=== PATIENT | female | born 1980 | race American Indian/Alaskan Native ===

== ENCOUNTER 2018-03-16 22:37 | Emergency (ER) | payer SELFPAY ==
[2018-03-16 23:01] VITALS: BP 118/74
[2018-03-16 23:23] LABS: Basophils % (Auto) 0.6 % (0.0-1.8); Eosinophils # (Auto) 0.2 K/mm3 (0.0-0.4); Eosinophils % (Auto) 3.5 % (0.0-4.3); Hematocrit 36.1 % (30.3-42.9); Hemoglobin 12.2 gm/dl (10.1-14.3); Lymphocytes # (Auto) 2.8 K/mm3 (1.2-5.4); Lymphocytes % (Auto) 46.1 % (13.4-35.0); Mean Corpuscular HGB Conc 34 % (30-34); Mean Corpuscular Hemoglobin 31 pg (28-32); Mean Corpuscular Volume 93 fl (79-97); Monocytes # (Auto) 0.3 K/mm3 (0.0-0.8); Monocytes % (Auto) 5.6 % (0.0-7.3); Platelet Count 306 K/mm3 (140-440); Red Cell Distribution Width 14.5 % (13.2-15.2)
[2018-03-16 23:48] LABS: Alanine Aminotransferase 17 units/L (7-56); Albumin 3.6 g/dL (3.9-5); BUN/Creatinine Ratio 13; Blood Urea Nitrogen 12 mg/dL (7-17); Calcium 8.7 mg/dL (8.4-10.2); Hemolysis Index 1
[2018-03-17 00:04] LABS: Bilirubin,Urine SM (Negative); Blood,Urine NEG (Negative); Color,Urine Yellow (Yellow); Mucus,Urine FEW /HPF; WBC,Urine < 1.0 /HPF (0.0-6.0)
[2018-03-17 00:15] LABS: Bacteria,Urine 1+ /HPF (Negative)
[2018-03-17 00:21] LABS: Ictotest,Urine Negative (Negative)
--- NOTE | 2018-03-17 01:18 | XRay Report ---
FINAL REPORT PROCEDURE: XR SPINE LUMBOSACRAL 2-3V TECHNIQUE: Lumbar spine radiographs, frontal and lateral views. CPT 18278 HISTORY: Left lower back pain COMPARISON: No prior studies are available for comparison. FINDINGS: Alignment: Normal . Vertebral body heights/Disk spaces: Normal . Fracture(s): None . Facets: Normal . Bone mineralization: Normal . IMPRESSION: Normal Examination
== END 2018-03-17 07:23 ==
LOC: ED 22:37
DX: M54.5 Low back pain (principal); M25.562 Pain in left knee; I10 Essential (primary) hypertension; E66.9 Obesity, unspecified; Z88.0 Allergy status to penicillin; Z88.8 Allergy status to other drugs, medicaments and biological substances; Z98.51 Tubal ligation status; Z87.891 Personal history of nicotine dependence; Z53.21 Procedure and treatment not carried out due to patient leaving prior to being seen by health care provider
CPT/HCPCS: 36415; 72100; 80053; 81001; 84703; 85025

== ENCOUNTER 2019-06-17 19:12 | Emergency (ER) | payer SELFPAY | END 2019-06-17 19:53 | disposition left against medical advice (07) | LOC: ED 19:12 | DX: M54.32 Sciatica, left side (principal); Z53.21 Procedure and treatment not carried out due to patient leaving prior to being seen by health care provider ==

== ENCOUNTER 2019-06-18 12:02 | Emergency (ER) | payer OTHER ==
[2019-06-18 12:29] VITALS: BP 139/79
--- NOTE | 2019-06-18 12:33 | Event Note ---
ED Screening Note Date of service: 06/18/19 Time: 12:31 ED Screening Note: This is a 39 y.o. F. that presents to the ER with low back pain for 4 days. Reports history of chronic low back pain. Denies injury, change in urinary or bowel pattern. This initial assessment/diagnostic orders/clinical plan/treatment(s) is/are subject to change based on patients health status, clinical progression and re- assessment by fellow clinical providers in the ED. Further treatment and workup at subsequent clinical providers discretion. Patient/guardian urged not to elope from the ED as their condition may be serious if not clinically assessed and managed. Initial orders include: CT of L-spine
--- NOTE | 2019-06-18 13:43 | Cat Scan Report ---
CT CERVICAL SPINE INDICATION: low back pain. TECHNIQUE: Axial CT images of the cervical spine were obtained. Sagittal and coronal reformatted images were pr oduced. All CT scans at this location are performed using CT dose reduction for ALARA by means of aut omated exposure control. COMPARISON: None available. FINDINGS: ALIGNMENT: There is slight curvature of the lumbar spine, convex toward the left. Furthermore, there is slight retrolisthesis at L5-S1. VERTEBRAE: There is no CT evidence of acute compression fracture involving the lobar spine at. INTRAVERTEBRAL DISCS: There is effacement of the left lateral recess at L5-S1 which appears to be res ult of broad-based left-sided disc protrusion. This finding also encroaches on the left S1 nerve root sheath at. There is mild neural foraminal narrowing on the left. The diffuse a disc bulge L4-5 appears to mildly flatten the ventral thecal sac. Additionally, there i s mild facet joint hypertrophy with mild neural foraminal narrowing bilaterally. The disc bulge at L3-4 appears to minimally flatten the ventral thecal sac at. There is no CT evidenc e of significant bony spinal stenosis at L1-2 or L2-3. PARASPINAL SOFT TISSUES: No paraspinal fluid collections are identified at. ADDITIONAL FINDINGS: None. IMPRESSION: 1. There appears be a broad-based left sided disc protrusion at L5-S1 which encroaches on the proxima l left S1 nerve root sheath at. There is slight retrolisthesis with mild left foraminal narrowing at this level Signer Name: Johnnie Madrigal MD Signed: 06/18/2019 1:39 PM Workstation Name: [id number]
[2019-06-18] MEDS ORDERED: methylPREDNISolone Sod Succinate 125 MG/2 ML INJ IM ONE (14:50)
[2019-06-18] MEDS ORDERED: ONDANSETRON 4 MG ODT TAB PO ONE (14:50)
[2019-06-18] MEDS ORDERED: KETOROLAC 60 MG/2 ML INJ IM ONE (14:50)
[2019-06-18] MEDS ORDERED: HYDROcodone/ACETAMINOPHEN 5-325 MG TAB PO ONE (14:50)
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
== END 2019-06-18 15:30 | disposition home or self-care (01) ==
LOC: ED 12:02
DX: M54.16 Radiculopathy, lumbar region (principal); I10 Essential (primary) hypertension; E66.9 Obesity, unspecified; Z90.49 Acquired absence of other specified parts of digestive tract; Z98.51 Tubal ligation status; Z79.899 Other long term (current) drug therapy; Z88.0 Allergy status to penicillin; Z91.040 Latex allergy status; Z88.8 Allergy status to other drugs, medicaments and biological substances
CPT/HCPCS: 72131; 96372; 99283; J1885; J2930; Q0162

== ENCOUNTER 2022-04-25 23:41 | Emergency (ER) | payer SELFPAY ==
[2022-04-26 00:48] VITALS: BP 164/107
== END 2022-04-26 19:53 | disposition left against medical advice (07) ==
LOC: ED 23:41
DX: K08.89 Other specified disorders of teeth and supporting structures (principal); Z53.21 Procedure and treatment not carried out due to patient leaving prior to being seen by health care provider

== ENCOUNTER 2022-04-27 18:03 | Emergency (ER) | payer SELFPAY ==
[2022-04-27 18:36] VITALS: BP 125/94
[2022-04-27] MEDS ORDERED: traMADol 50 MG TAB PO ONE (20:42)
[2022-04-27] MEDS ORDERED: CLINDAMYCIN 300 MG CAP PO ONE (20:42)
--- NOTE | 2022-04-27 20:58 | Emergency Department Report ---
ED General Adult HPI - General Chief complaint: Dental/Oral Stated complaint: TOOTHACHE /HEADACHE Time Seen by Provider: 04/27/22 20:42 Source: patient Mode of arrival: Ambulatory Limitations: No Limitations - History of Present Illness Initial comments: Is a 41-year-old female who presents for dental pain. Patient has history of recurrent chronic dental caries. Patient states been unable to see dentist. There is no fevers no chills. No facial or gum swelling. He is tolerating p.o. intake there is no throat or ear pain. Is exacerbated by chewing.'s are relieved by nothing tried. Patient appears nontoxic alert oriented x3 and ambulatory with steady gait. - Related Data Previous Rx's Medication Instructions Recorded Last Taken Type Ibuprofen [Motrin 800 MG tab] 800 mg PO TID PRN #30 tablet 06/10/14 Unknown Rx Cyclobenzaprine HCl [Flexeril 5 MG 5 mg PO BID PRN #10 tab 06/18/19 Unknown Rx TAB] HYDROcodone/APAP 5-325 [[place] 1 each PO Q6HR PRN #12 tablet 06/18/19 Unknown Rx 5/325] Naproxen [Naprosyn] 500 mg PO BID PRN #20 tablet 06/18/19 Unknown Rx predniSONE [Deltasone] 20 mg PO DAILY #15 tablet 06/18/19 Unknown Rx Chlorhexidine Mouthwash [Peridex] 15 ml MM BID #1 bottle 04/27/22 Unknown Rx Clindamycin [Clindamycin CAP] 300 mg PO Q8H 7 Days #21 cap 04/27/22 Unknown Rx traMADoL [Ultram] 50 mg PO Q6HR PRN #12 tablet 04/27/22 Unknown Rx Allergies Allergy/AdvReac Type Severity Reaction Status Date / Time latex Allergy Unknown Verified 06/17/19 19:33 Penicillins Allergy Swelling Verified 06/10/14 13:48 meperidine HCl [From Demerol] AdvReac Shortness Verified 06/10/14 13:48 of Breath ED Review of Systems ROS: Stated complaint: TOOTHACHE /HEADACHE Other details as noted in HPI Constitutional: denies: chills, fever Eyes: denies: eye pain, eye discharge, vision change ENT: dental pain Respiratory: denies: cough, shortness of breath, wheezing Cardiovascular: denies: chest pain, palpitations Endocrine: no symptoms reported Gastrointestinal: denies: abdominal pain, nausea, diarrhea Genitourinary: denies: urgency, dysuria, discharge Musculoskeletal: denies: back pain, joint swelling, arthralgia Skin: denies: rash, lesions Neurological: denies: headache, weakness, paresthesias, vertigo Psychiatric: denies: anxiety, depression Hematological/Lymphatic: denies: easy bleeding, easy bruising ED Past Medical Hx - Past Medical History Previous Medical History?: Yes Hx Hypertension: Yes (UNMEDICATED) Additional medical history: Obesity - Surgical History Past Surgical History?: Yes Hx Cholecystectomy: Yes Additional Surgical History: Tubal Ligation - Social History Smoking Status: Current Every Day Smoker Substance Use Type: None - Medications Home Medications: Home Medications Medication Instructions Recorded Confirmed Last Taken Type Ibuprofen [Motrin 800 MG tab] 800 mg PO TID PRN #30 tablet 06/10/14 Unknown Rx Cyclobenzaprine HCl [Flexeril 5 MG 5 mg PO BID PRN #10 tab 06/18/19 Unknown Rx TAB] HYDROcodone/APAP 5-325 [[place] 1 each PO Q6HR PRN #12 tablet 06/18/19 Unknown Rx 5/325] Naproxen [Naprosyn] 500 mg PO BID PRN #20 tablet 06/18/19 Unknown Rx predniSONE [Deltasone] 20 mg PO DAILY #15 tablet 06/18/19 Unknown Rx Chlorhexidine Mouthwash [Peridex] 15 ml MM BID #1 bottle 04/27/22 Unknown Rx Clindamycin [Clindamycin CAP] 300 mg PO Q8H 7 Days #21 cap 04/27/22 Unknown Rx traMADoL [Ultram] 50 mg PO Q6HR PRN #12 tablet 04/27/22 Unknown Rx ED Physical Exam - General Limitations: No Limitations General appearance: alert, in no apparent distress - Head Head exam: Present: normocephalic, normal inspection - Eye Eye exam: Present: PERRL, EOMI Pupils: Present: normal accommodation - ENT ENT exam: Present: mucous membranes moist - Expanded ENT Exam Expanded Teeth exam: Present: dental caries (2 and 30) Throat exam: Positive: other (No lesions no swelling no stridor no exudate). Negative: tonsillar erythema, tonsillomegaly, tonsillar exudate, R peritonsillar mass, L peritonsillar mass - Neck Neck exam: Present: normal inspection, full ROM. Absent: tenderness, lymphadenopathy - Respiratory Respiratory exam: Present: normal lung sounds bilaterally. Absent: respiratory distress, stridor - Cardiovascular Cardiovascular Exam: Present: regular rate, normal rhythm, normal heart sounds. Absent: systolic murmur, diastolic murmur, rubs, gallop - GI/Abdominal GI/Abdominal exam: Present: soft, normal bowel sounds - Extremities Exam Extremities exam: Present: normal inspection, full ROM, normal capillary refill - Back Exam Back exam: Present: normal inspection, full ROM. Absent: CVA tenderness (R), CVA tenderness (L) - Neurological Exam Neurological exam: Present: alert, oriented X3, CN II-XII intact - Psychiatric Psychiatric exam: Present: normal affect, normal mood - Skin Skin exam: Present: warm, dry, intact, normal color. Absent: rash ED Course Vital Signs 04/27/22 18:34 Temperature 98.7 F Pulse Rate 85 Respiratory 18 Rate Blood Pressure 125/94 O2 Sat by Pulse 99 Oximetry ED Medical Decision Making - Medical Decision Making Is a straightforward infected dental caries plan DC to home with prescriptions, follow-up with dentist in 2 to 3 days. Return to emergency department should symptoms worsen. Critical care attestation.: If time is entered above; I have spent that time in minutes in the direct care of this critically ill patient, excluding procedure time. ED Disposition Clinical Impression: Infected dental caries Disposition: HOME / SELF CARE / HOMELESS Is pt being admited?: No Does the pt Need Aspirin: No Condition: Stable Instructions: Preventive Dental Care, Adult Additional Instructions: Take medications as prescribed, follow-up with your dentist in 2 days, return to emergency department should symptoms worsen. Prescriptions: Clindamycin [Clindamycin CAP] 300 mg PO Q8H 7 Days #21 cap Chlorhexidine Mouthwash [Peridex] 15 ml MM BID #1 bottle traMADoL [Ultram] 50 mg PO Q6HR PRN #12 tablet PRN Reason: Pain Referrals: [facility] [Outside] - 3-5 Days Forms: Work/School Release Form(ED) Time of Disposition: 20:59
== END 2022-04-27 21:20 | disposition home or self-care (01) ==
LOC: ED 18:03
DX: K04.7 Periapical abscess without sinus (principal); I10 Essential (primary) hypertension; Z90.49 Acquired absence of other specified parts of digestive tract; F17.200 Nicotine dependence, unspecified, uncomplicated; Z91.040 Latex allergy status; Z88.0 Allergy status to penicillin; Z91.09 Other allergy status, other than to drugs and biological substances
CPT/HCPCS: 99282